=== PATIENT | female | born 1960 | race Caucasian/White ===

== ENCOUNTER → 2017-02-28 | Outpatient (CLI) | payer BC ==
--- NOTE | 2017-03-02 11:55 | RADIOLOGY REPORT PS360 ---
DIG MAMM-SCREEN [facility] W/CAD CAD Screening COMPARISON: Digital mammograms 10/09/2013 and analog mammograms 08/14/2009 INDICATION: There is no personal or family history of breast cancer. There is been previous biopsy right breast. TECHNIQUE: Standard CC and MLO images were obtained. R2 CAD reviewed. FINDINGS: There is a diffusely dense and heterogenic parenchymal pattern lessening the sensitivity of mammography. Multiple scattered benign-appearing calcifications are seen in both breast as noted previously. There is no suspicious lesion and there are no suspicious microcalcifications. There are small nodes in both axilla stable and unchanged from previous exam. IMPRESSION: Diffusely and heterogenic dense breast parenchyma consistent with fibrocystic change, recommend yearly follow-up BI-RADS CATEGORY: 2_Benign RECOMMENDED FOLLOWUP: 12M 12 MONTH FOLLOW-UP (A letter has been sent to the patient regarding results of the study.)
== END ==
LOC: RAD 16:08
DX: Z12.31 Encounter for screening mammogram for malignant neoplasm of breast (principal)
CPT/HCPCS: G0202